=== PATIENT | female | born 1955 | race Caucasian/White ===

== ENCOUNTER 2018-12-22 17:35 | Emergency (ER) | payer BC ==
[2018-12-22] MEDS ORDERED: FAMOTIDINE 20 MG/2 ML VIAL IV ONE (19:07)
[2018-12-22] MEDS ORDERED: ONDANSETRON 4 MG/2 ML VIAL ONE (19:07)
[2018-12-22] MEDS ORDERED: DIPHENHYDRAMINE 50 MG/ML VIAL ONE (19:07)
[2018-12-22] MEDS ORDERED: NA CHLORIDE 0.9% 1,000 ML ONE (19:07)
[2018-12-22 19:10] LABS: Absolute Lymphocytes (CBC) 1.5 K/uL (0.7-4.9); Absolute Monocytes 0.6 K/uL (0.1-1.3); Absolute Neutrophil 7.4 K/uL (1.8-8.0); Basophils % 0.8 % (0-1.3); Eosinophils % 1.6 % (0-4.4); Monocytes % 6.1 % (3.3-12.3); RBC Red Blood Cell Count 4.76 M/uL (3.86-4.86)
[2018-12-22 19:33] LABS: ALT/SGPT 36 U/L (12-78); AST/SGOT 21 U/L (15-37); Alkaline Phosphatase 73 U/L (45-117); BUN Blood Urea Nitrogen 9 mg/dL (7-18); Bicarbonate 23 mmol/L (21-32); Bilirubin Direct 0.3 mg/dL (0-0.2); Bilirubin Total 0.4 mg/dL (0.2-1.0); Glucose Level 105 mg/dL (74-106); Lipase 292 U/L (73-393); Magnesium 2.2 mg/dL (1.8-2.4); Potassium 3.4 mmol/L (3.5-5.1); Protein, Total 7.2 g/dL (6.4-8.2); Sodium Level 141 mmol/L (136-145); Troponin I < 0.02 ng/mL (0.0-0.045)
--- NOTE | 2018-12-22 20:00 | RAD REPORT ---
EXAM DESCRIPTION: US - Abdomen Exam Limited - 12/22/2018 7:23 pm CLINICAL HISTORY: RUQ abdomen pain COMPARISON: No comparisons FINDINGS: The gallbladder demonstrates no gallstones. No pericholecystic fluid or gallbladder wall t hickening. The common bile duct is mildly prominent measuring 9 mm. The liver demonstrates no findings of intrahepatic biliary dilatation. IMPRESSION: Negative gallbladder findings. CBD is mildly prominent measuring 9 mm. Followup MRCP may be of value if clinically indicated.
[2018-12-22 20:06] LABS: Urine RBC NONE SEEN /HPF (NONE SEEN)
[2018-12-22 20:07] LABS: Urine Bacteria <20 /HPF (<20); Urine Culture Reflex Order REFLEXED
--- NOTE | 2018-12-22 20:27 | RAD REPORT ---
EXAM DESCRIPTION: CTAbdomen Pelvis W Contrast - 12/22/2018 8:17 pm CLINICAL HISTORY: Abdominal pain. diarrhea COMPARISON: <Comparisons> TECHNIQUE: Biphasic CT imaging of the abdomen and pelvis was performed with 100 ml non-ionic IV cont rast. All CT scans are performed using dose optimization technique as appropriate and may include automated exposure control or mA/KV adjustment according to patient size. FINDINGS: The lung bases are clear. The liver, spleen, pancreas, adrenal glands and kidneys are within normal limits. No bowel obstruction, free air, free fluid or abscess. Prominent sigmoid diverticulosis without diver ticulitis. The appendix is normal. No evidence of significant lymphadenopathy. No suspicious bony findings. IMPRESSION: No acute intra-abdominal or pelvic finding. Prominent sigmoid diverticulosis.
--- NOTE | 2018-12-22 20:43 | ER ---
Nurse's Notes [facility] Name: Raman Conner Age: 63 yrs Sex: Female : 1955 Arrival Date: 12/22/2018 Time: 17:41 Bed 27 Private MD: Ruslan Hernandez Diagnosis: Nausea;Diarrhea, unspecified Presentation: 12/22 17:45 Presenting complaint: Patient states: I stopped taking suboxone about 18 days ago and la1 today I took naltrexone and now I am having diarrhea, tremors. Transition of care: patient was not received from another setting of care. Onset of symptoms was December 22, 2018. Risk Assessment: Do you want to hurt yourself or someone else? Patient reports no desire to harm self or others. Initial Sepsis Screen: Does the patient meet any 2 criteria? No. Patient's initial sepsis screen is negative. Does the patient have a suspected source of infection? No. Patient's initial sepsis screen is negative. Care prior to arrival: None. 17:45 Method Of Arrival: Ambulatory la1 17:45 Acuity: SAMANTHA 3 la1 Historical: - Allergies: 17:44 No Known Allergies; la1 - Home Meds: 17:44 Wellbutrin Oral [Active]; Lexapro Oral [Active]; Ambien Oral [Active]; suboxone la1 [Active]; 17:45 naltrexone oral oral [Active]; la1 - PMHx: 17:44 High Cholesterol; la1 - PSHx: 17:44 right knee; Tonsillectomy; la1 - Immunization history:: Adult Immunizations up to date. - Social history:: Smoking status: Patient/guardian denies using tobacco. - Ebola Screening: : No symptoms or risks identified at this time. Screenin:24 Abuse screen: Denies threats or abuse. Denies injuries from another. Nutritional mg2 screening: No deficits noted. Tuberculosis screening: No symptoms or risk factors identified. Fall Risk IV access (20 points). Assessment: 18:22 General: Appears in no apparent distress. comfortable, Behavior is calm, cooperative. mg2 Pain: Complains of pain in head Pain does not radiate. Pain currently is 8 out of 10 on a pain scale. Quality of pain is described as aching, heavy, pressure, Pain began gradually, 1 day ago. Is intermittent. Neuro: Level of Consciousness is awake, alert, obeys commands, Oriented to person, place, time, situation. Neuro: Reports headache. Cardiovascular: Capillary refill < 3 seconds Patient's skin is warm and dry. Respiratory: Airway is patent Respiratory effort is even, unlabored, Respiratory pattern is regular, symmetrical. GI: Abdomen is non-distended, Reports diarrhea. : No signs and/or symptoms were reported regarding the genitourinary system. EENT: No signs and/or symptoms were reported regarding the EENT system. Derm: Skin is intact, is healthy with good turgor, Skin is pink, warm \T\ dry. normal. Musculoskeletal: Circulation, motion, and sensation intact. Capillary refill < 3 seconds. 20:29 Reassessment: Patient appears in no apparent distress at this time. No changes from la1 previously documented assessment. Patient and/or family updated on plan of care and expected duration. Pain level reassessed. Patient is alert, oriented x 3, equal unlabored respirations, skin warm/dry/pink. Vital Signs: 17:46 BP 125 / 76; Pulse 105; Resp 16; Temp 97.4; Pulse Ox 98% on R/A; Weight 89.36 kg; la1 Height 5 ft. 5 in. (165.10 cm); Pain 6/10; 18:24 BP 118 / 74; Pulse 79; Resp 18; Temp 98; Pulse Ox 100% on R/A; mg2 19:08 BP 131 / 57; Pulse 78; Resp 18; Temp 98; Pulse Ox 100% on R/A; mg2 20:29 BP 120 / 52; Pulse 76; Resp 16; Pulse Ox 98% on R/A; la1 17:46 Body Mass Index 32.78 (89.36 kg, 165.10 cm) la1 ED Course: 17:41 Patient arrived in ED. ag5 17:41 Ruslan Hernandez MD is Private Physician. ag5 17:45 Arm band placed on left wrist. la1 17:46 Triage completed. la1 17:50 Edouard Alejandre, JUNIOR is Primary Nurse. mg2 18:06 Teddy Smith PA is PHCP. cp 18:06 Earnest Mena MD is Attending Physician. cp 18:24 Patient has correct armband on for positive identification. Pulse ox on. NIBP on. Door mg2 closed. Warm blanket given. 18:24 No provider procedures requiring assistance completed. mg2 18:51 Initial lab(s) drawn, by me, sent to lab. Inserted saline lock: 20 gauge in right lt1 antecubital area, using aseptic technique. 19:24 US Abdomen Limited In Process Unspecified. EDMS 20:18 CT Abd/Pelvis - IV Contrast Only In Process Unspecified. EDMS 20:18 CT completed. Patient tolerated procedure well. Patient moved back from CT. mw3 21:17 IV discontinued, intact, bleeding controlled, No redness/swelling at site. Pressure la1 dressing applied. Administered Medications: 19:07 Drug: Benadryl 25 mg Route: IVP; Site: right antecubital; mg2 21:16 Follow up: Response: No adverse reaction la1 19:07 Drug: Pepcid 20 mg Route: IVP; Site: right antecubital; mg2 21:16 Follow up: Response: No adverse reaction la1 19:08 Drug: NS 0.9% 1000 ml Route: IV; Rate: 1000 ml/hr; Site: right antecubital; mg2 21:16 Follow up: IV Status: Completed infusion la1 19:08 Drug: Zofran 4 mg Route: IVP; Site: right antecubital; mg2 21:16 Follow up: Response: No adverse reaction la1 21:16 Drug: Potassium Effervescent Tablet 25 mEq Route: PO; la1 21:16 Follow up: Response: No adverse reaction la1 Outcome: 20:43 Discharge ordered by . cp 21:16 Discharged to home ambulatory. la1 21:16 Condition: stable 21:16 Discharge instructions given to patient, Instructed on discharge instructions, follow up and referral plans. medication usage, Demonstrated understanding of instructions, follow-up care, medications, Prescriptions given X 2. 21:17 Patient left the ED. la1 Signatures: Dispatcher [employer] EDMS Denzel Lindsay RN RN la1 Teddy Smith PA PA cp Gardose, Michele, RN RN mg2 Jenna Pérez mw3 Alli Cardenas ag5 Ofelia Ingram lt1 Corrections: (The following items were deleted from the chart) 20:18 20:17 CT completed. Patient tolerated procedure well mw3 mw3 20:18 20:17 Patient moved back from CT. mw3 mw3
--- NOTE | 2018-12-22 20:43 | EDPHYS ---
Physician Documentation [facility] Name: Raman Conner Age: 63 yrs Sex: Female : 1955 Arrival Date: 12/22/2018 Time: 17:41 Bed 27 Private MD: Ruslan Hernandez ED Physician Earnest Mena HPI: 12/22 18:28 This 63 yrs old Female presents to ER via Ambulatory with complaints of cp Diarrhea. 18:30 The patient presents to the emergency department with nausea, that is mild, diarrhea, cp that is continuous. 18:30 Associated signs and symptoms: Pertinent negatives: constipation, dysuria, fever, GI cp bleeding, vomiting. Severity of symptoms: in the emergency department the symptoms are unchanged despite home interventions. 18:30 Possible causes: stopped taking Suboxone 18 days ago and started taking Naltrexone cp today. 18:30 Onset: The symptoms/episode began/occurred gradually, and became worse today. cp Historical: - Allergies: 17:44 No Known Allergies; la1 - Home Meds: 17:44 Wellbutrin Oral [Active]; Lexapro Oral [Active]; Ambien Oral [Active]; suboxone la1 [Active]; 17:45 naltrexone oral oral [Active]; la1 - PMHx: 17:44 High Cholesterol; la1 - PSHx: 17:44 right knee; Tonsillectomy; la1 - Immunization history:: Adult Immunizations up to date. - Social history:: Smoking status: Patient/guardian denies using tobacco. - Ebola Screening: : No symptoms or risks identified at this time. ROS: 18:35 Constitutional: Negative for body aches, chills, fever, poor PO intake. cp 18:35 Eyes: Negative for injury, pain, redness, and discharge. cp 18:35 ENT: Negative for drainage from ear(s), ear pain, sore throat, difficulty swallowing, difficulty handling secretions. 18:35 Neck: Negative for pain with movement, pain at rest, stiffness. 18:35 Cardiovascular: Negative for chest pain, edema, palpitations. 18:35 Respiratory: Negative for cough, shortness of breath, wheezing. 18:35 Abdomen/GI: Positive for nausea, diarrhea, Negative for vomiting, constipation, anorexia, black/tarry stool, rectal bleeding. 18:35 Back: Negative for pain at rest, pain with movement. 18:35 Neuro: Positive for headache, tremor, Negative for altered mental status, visual changes, weakness. 18:35 All other systems are negative. Exam: 18:42 Constitutional: The patient appears in no acute distress, alert, awake, cp non-diaphoretic, non-toxic, well developed, well nourished. 18:42 Head/Face: Normocephalic, atraumatic. cp 18:42 Eyes: Periorbital structures: appear normal, Conjunctiva: normal, no exudate, no injection, Sclera: no appreciated abnormality, Lids and lashes: appear normal, bilaterally. 18:42 ENT: External ear(s): are unremarkable, Nose: is normal, Mouth: Lips: moist, Oral mucosa: pink and intact, moist, Posterior pharynx: is normal, airway is patent, no erythema, no exudate. 18:42 Neck: ROM/movement: is normal, is supple, without pain, no range of motions limitations, no nuchal rigidity. 18:42 Chest/axilla: Inspection: normal, Palpation: is normal, no crepitus, no tenderness. 18:42 Cardiovascular: Rate: normal, Rhythm: regular. 18:42 Respiratory: the patient does not display signs of respiratory distress, Respirations: normal, no use of accessory muscles, labored breathing, is not present, Breath sounds: are clear throughout, no decreased breath sounds, no stridor, no wheezing. 18:42 Abdomen/GI: Inspection: abdomen appears normal, Bowel sounds: active, all quadrants, Palpation: soft, in all quadrants, mild abdominal tenderness, in the right upper quadrant, rebound tenderness, is not appreciated, involuntary guarding, is not appreciated. 18:42 Back: pain, is absent, ROM is normal. 18:42 Skin: no rash present. 18:42 Neuro: Orientation: to person, place \T\ time. Mentation: is normal, Cerebellar function: is grossly normal, Motor: moves all fours, strength is normal, Sensation: is normal. 19:14 ECG was reviewed by the Attending Physician. cp Vital Signs: 17:46 BP 125 / 76; Pulse 105; Resp 16; Temp 97.4; Pulse Ox 98% on R/A; Weight 89.36 kg; la1 Height 5 ft. 5 in. (165.10 cm); Pain 6/10; 18:24 BP 118 / 74; Pulse 79; Resp 18; Temp 98; Pulse Ox 100% on R/A; mg2 19:08 BP 131 / 57; Pulse 78; Resp 18; Temp 98; Pulse Ox 100% on R/A; mg2 20:29 BP 120 / 52; Pulse 76; Resp 16; Pulse Ox 98% on R/A; la1 17:46 Body Mass Index 32.78 (89.36 kg, 165.10 cm) la1 MDM: 18:06 Patient medically screened. cp 20:42 Data reviewed: vital signs, nurses notes, lab test result(s), radiologic studies, CT cp scan, ultrasound. 20:42 Differential diagnosis: gastritis, cholecystitis, pancreatitis, diverticulitis, viral cp gastroenteritis, gastroenteritis. Counseling: I had a detailed discussion with the patient and/or guardian regarding: the historical points, exam findings, and any diagnostic results supporting the discharge/admit diagnosis, lab results, radiology results, to return to the emergency department if symptoms worsen or persist or if there are any questions or concerns that arise at home. ED course: VSS. Symptoms improved with IV meds and fluids. Will discharge to home for continued monitoring. 12/22 18:27 Order name: Basic Metabolic Panel cp 12/22 18:27 Order name: CBC with Diff cp 12/22 18:27 Order name: Creatinine for Radiology; Complete Time: 19:53 cp 12/22 18:27 Order name: Hepatic Function; Complete Time: 19:53 cp 12/22 19:53 Interpretation: Normal except: BILID 0.3. cp 12/22 18:27 Order name: Lipase; Complete Time: 19:53 cp 12/22 18:28 Order name: Urine Microscopic Only; Complete Time: 20:35 cp 12/22 20:35 Interpretation: Normal except: UWBC 20-50. cp 12/22 18:28 Order name: US Abdomen Limited; Complete Time: 20:35 cp 12/22 18:28 Order name: Magnesium; Complete Time: 19:53 cp 12/22 18:28 Order name: Troponin I; Complete Time: 19:53 cp 12/22 18:29 Order name: Basic Metabolic Panel; Complete Time: 19:53 EDMS 12/22 19:53 Interpretation: Normal except: K 3.4; GFR 83. cp 12/22 18:29 Order name: CBC with Automated Diff; Complete Time: 19:53 EDMS 12/22 19:53 Interpretation: Normal except: NESTOR% 76.5; LYM% 15.0. cp 12/22 19:55 Order name: CT Abd/Pelvis - IV Contrast Only; Complete Time: 20:35 cp 12/22 19:55 Order name: Urine Dipstick--Ancillary (enter results) ar 12/22 20:10 Order name: Urine Culture EDCT 12/22 18:27 Order name: IV Saline Lock; Complete Time: 18:50 cp 12/22 18:27 Order name: Labs collected and sent; Complete Time: 18:50 cp 12/22 18:27 Order name: Urine Dipstick-Ancillary (obtain specimen); Complete Time: 19:10 cp 12/22 18:28 Order name: EKG; Complete Time: 18:29 cp 12/22 18:28 Order name: EKG - Nurse/Tech; Complete Time: 19:10 cp EC:14 Rate is 73 beats/min. Rhythm is regular. NV interval is normal. QRS interval is normal. cp QT interval is normal. T waves are Inverted in lead aVL. Interpreted by me. Reviewed by me. Administered Medications: 19:07 Drug: Benadryl 25 mg Route: IVP; Site: right antecubital; mg2 21:16 Follow up: Response: No adverse reaction la1 19:07 Drug: Pepcid 20 mg Route: IVP; Site: right antecubital; mg2 21:16 Follow up: Response: No adverse reaction la1 19:08 Drug: NS 0.9% 1000 ml Route: IV; Rate: 1000 ml/hr; Site: right antecubital; mg2 21:16 Follow up: IV Status: Completed infusion la1 19:08 Drug: Zofran 4 mg Route: IVP; Site: right antecubital; mg2 21:16 Follow up: Response: No adverse reaction la1 21:16 Drug: Potassium Effervescent Tablet 25 mEq Route: PO; la1 21:16 Follow up: Response: No adverse reaction la1 Disposition: 12/23 12:52 Co-signature as Attending Physician, Earnest Mena MD. Disposition: 12/22/18 20:43 Discharged to Home. Impression: Nausea, Diarrhea, unspecified. - Condition is Stable. - Discharge Instructions: Food Choices to Help Relieve Diarrhea, Adult, Diarrhea, Adult, Nausea, Adult. - Prescriptions for Zofran 4 mg Oral Tablet - take 1 tablet by ORAL route every 12 hours As needed; 20 tablet. Lomotil 2.5- 0.025 mg Oral Tablet - take 1 tablet by ORAL route every 6 hours As needed; 20 tablet. - Medication Reconciliation Form, Thank You Letter, Antibiotic Education, Prescription Opioid Use form. - Follow up: Private Physician; When: 2 - 3 days; Reason: Recheck today's complaints. - Problem is new. - Symptoms have improved. Signatures: Dispatcher [employer] EDMS Denzel Lindsay RN RN la1 Teddy Smith PA PA cp Starr, Gregory, MD MD Edouard Alejandre RN RN mg2 Corrections: (The following items were deleted from the chart) 12/22 21:17 20:43 12/22/2018 20:43 Discharged to Home. Impression: Nausea; Diarrhea, unspecified. la1 Condition is Stable. Forms are Medication Reconciliation Form, Thank You Letter, Antibiotic Education, Prescription Opioid Use. Follow up: Private Physician; When: 2 - 3 days; Reason: Recheck today's complaints. Problem is new. Symptoms have improved. cp 12/23 19:16 12/22 18:30 Possible causes: stopped taking Suboxone 18 days ago and started taking cp naltrexone 2 days ago cp
[2018-12-22 21:07] LABS: Urine Blood NEGATIVE (NEG); Urine Glucose NEGATIVE (NEG); Urine Protein NEGATIVE (NEG); Urine Specific Gravity <1.005 (1.005-1.030); Urine pH 5.5 (5.0-7.0)
[2018-12-22] MEDS ORDERED: POTASSIUM 25 MEQ EFFERV TAB ONE (21:07)
[2018-12-22 21:49] VITALS: TEMP 98
[2018-12-22 21:51] VITALS: BP 120/52; O2SAT 98
--- NOTE | 2018-12-23 10:35 | EKG ---
Test Date: 2018-12-22 Test Time: 19:04:20 Lease Out Man: AARON MEASUREMENT RESULTS: Intervals: Rate: 73 OK: 160 QRSD: 96 QT: 412 QTc: 453 [place]: P: 33 OK: 160 QRS: 36 T: 66 INTERPRETIVE STATEMENTS: Normal sinus rhythm normal ECG Compared to ECG 09/08/2016 12:30:07 Sinus bradycardia no longer present Electronically Signed On 12-23-18 10:34:46 CDT by Giuliano Jesus
== END 2018-12-22 21:17 | disposition home or self-care (01) ==
LOC: ER 17:35
DX: R19.7 Diarrhea, unspecified (principal); R11.0 Nausea; E78.00 Pure hypercholesterolemia, unspecified
CPT/HCPCS: 36415; 74177; 76705; 80048; 80076; 81003; 81015; 83690; 83735; 84484; 85025; 87086; 87088; 93005; 96361; 96374; 96375; 99284; J2405; J7030; Q9967